=== PATIENT | female | born 1970 | race Caucasian/White ===

== ENCOUNTER → 2022-02-15 | Outpatient (CLI) | payer OTHER ==
[2022-02-18 15:07] LABS: HPV 16 Negative (Negative); HPV 18 Negative (Negative); HPV OTHER HR TYPES Positive (Negative)
== END ==
LOC: LAB SHORT 15:35 → LAB 15:35
PROVIDERS: Nurse Practitioner Family
DX: Z01.419 Encounter for gynecological examination (general) (routine) without abnormal findings (principal)
CPT/HCPCS: 87624; 87625; G0123

== ENCOUNTER → 2023-05-20 | Outpatient (CLI) | payer OTHER ==
[2023-05-21 07:59] LABS: Candida species (DNA Probe) Negative (NEGATIVE); G. vaginalis (DNA Probe) Positive (NEGATIVE); T. vaginalis (DNA Probe) Negative (NEGATIVE)
[2023-05-22 15:09] LABS: HPV 16 Negative (Negative); HPV 18 Negative (Negative); HPV OTHER HR TYPES Negative (Negative)
== END ==
LOC: LAB SHORT 17:15 → LAB 17:15
PROVIDERS: Nurse Practitioner Family
DX: Z01.419 Encounter for gynecological examination (general) (routine) without abnormal findings (principal)
CPT/HCPCS: 87480; 87510; 87624; 87660; G0145

== ENCOUNTER → 2024-10-09 | Outpatient (CLI) | payer BC, OTHER ==
[2024-10-12 12:32] LABS: Stool Occult Bld Immuno 1 Negative (NEGATIVE)
== END ==
LOC: LAB 07:40 → LAB SHORT 07:40
PROVIDERS: Family Medicine
DX: Z12.11 Encounter for screening for malignant neoplasm of colon (principal)
CPT/HCPCS: G0328

== ENCOUNTER → 2024-10-14 | Outpatient (CLI) | payer BC, OTHER ==
[2024-10-22 10:58] LABS: HPV HIGH RISK BY TMA Not Detected; HPV SOURCE Cervical
== END | disposition home or self-care (01) ==
LOC: LAB SHORT 17:05 → LAB 17:05
PROVIDERS: Family Medicine
DX: Z12.4 Encounter for screening for malignant neoplasm of cervix (principal)
CPT/HCPCS: 87624; G0123

== ENCOUNTER → 2025-06-01 | Outpatient (CLI) | payer BC, OTHER ==
[2025-06-01 15:57] LABS: Candida Group, PCR NOT DETECTED (NOT DETECT); Candida glabrata-krusei, PCR NOT DETECTED (NOT DETECT)
[2025-06-01 16:02] LABS: Bacterial Vaginosis PCR Positive (NEGATIVE)
[2025-06-01 17:04] LABS: Chlamydia Trachomatis Vaginal NOT DETECTED (NOT DETECT); Neisseria Gonorrhoea Vaginal NOT DETECTED (NOT DETECT)
== END | disposition home or self-care (01) ==
LOC: LAB SHORT 09:20 → LAB 09:20
DX: N89.8 Other specified noninflammatory disorders of vagina (principal)
CPT/HCPCS: 81515; 87491; 87591

== ENCOUNTER 2025-07-15 07:23 | Day surgery (SDC) | payer OTHER, BC ==
[~2025-07-15] VITALS: Ht 175.3 cm; Wt 75.9 kg
[~2025-07-15 07:23] MED LIST: BUPRENORPHINE HC8 MG SL; CELE200 PO
[2025-07-15] MEDS ORDERED: CeFAZolin Sodium 2,000 MG VIAL ONE (07:41)
--- NOTE | 2025-07-15 08:08 | NUR ---
07/15/25 0808 LandrymsStephanie carter PATIENT REPORTS SHE LAST TOOK BUPRENORPHINE ONFriday07/11/25 AND LAST TOOK CELEBREX YESTERDAY, RN WILL UPDATE ARMEN BYRNE AND KEARA
[2025-07-15] MEDS ORDERED: FentaNYL Citrate 50 MCG/ML 2 ML Injection ONE ×2 (08:18→10:53)
[2025-07-15] MEDS ORDERED: Midazolam HCl 1MG / ML 2ML Vial ONE (08:19)
[2025-07-15] MEDS ORDERED: Bupivacaine 0.5% W/EPI 1:200000 SDV 30 ML Vial ONE (09:09)
[2025-07-15 11:01] VITALS: BP 134/81
[2025-07-15] MEDS ORDERED: OxyCODONE 5 mg/Acetamin 325 mg TABLET ONE (11:06)
--- NOTE | 2025-07-15 12:36 | NUR ---
07/15/25 1236 Gucci Ferrari PT STATED SHE HAD NOT BEEN ABLE TO FILL PERSCRIPTION SENT TO [facility] D/T HX BUPENORPHRINE USE. PHARMACIST AT [facility] WAS CONSULTED. PHARMACIST STATED PERSCRIPTION WOULD BE FILLED BUT PT SHOULD WAIT SEVEN DAYS FROM D/C OF BUPENORPHRINE BEFORE TAKING OPIATE PAIN MEDICATION. PT HAS BEEN OFF BUPENORPHRINE FOR FOUR DAYS. DR. BYRNE WAS CONSULTED AND APPROVED USE OF OPIATES PERCRIBED FOR POST OP PAIN. PT WAS STRONGLY ENCOURAGED TO USE OTC PAIN RELIEVERS IN PLACE OF PERSCRIPTION. SHE WAS ALSO INSTRUCTED TO CONSULT WITH PHARMACIST AND USE PERSCRIPTION DIRECTED BY PHARMACIST.
== END 2025-07-15 12:26 | disposition home or self-care (01) ==
LOC: ORSCSDS 07:23
PROVIDERS: Orthopaedic Surgery
PROC: 0SBD4ZZ Excision of Left Knee Joint, Percutaneous Endoscopic Approach (ICD-10-PCS; principal; 2025-07-15 09:15)
DX: S83.232A Complex tear of medial meniscus, current injury, left knee, initial encounter (principal); F17.290 Nicotine dependence, other tobacco product, uncomplicated; Z79.899 Other long term (current) drug therapy
CPT/HCPCS: A9270; J0166; J0690; J2250; J2704; J3010; J7120

== ENCOUNTER → 2025-09-02 | Outpatient (CLI) | payer OTHER ==
[2025-09-02 20:23] LABS: Bacterial Vaginosis PCR Negative (NEGATIVE); Candida Group, PCR NOT DETECTED (NOT DETECT); Candida glabrata-krusei, PCR NOT DETECTED (NOT DETECT)
== END | disposition home or self-care (01) ==
LOC: LAB SHORT 18:00 → LAB 18:00
PROVIDERS: Family Medicine
DX: N89.8 Other specified noninflammatory disorders of vagina (principal)
CPT/HCPCS: 81515